=== PATIENT | male | born 1985 | race Asian ===

== ENCOUNTER 2018-03-23 20:51 | Emergency (ER) | payer OTHER ==
[~2018-03-23] VITALS: Ht 175.3 cm; Wt 71.2 kg
[~2018-03-23 20:51] MED LIST: ALBUTEROL SULF8.5 GM INH; AMOXICILLIN500 MG ORAL; JANUVIA25 MG ORAL; LANTUS SOL100 UNIT/1 SUBQ; NKM; NORCO 5-325 TA1 EACH ORAL; NOVOLOG100 UNIT/3 SUBQ; OMEPRAZOLE10 M1 ORAL; PROMETHAZINE-C118 M1 ORAL; TRAMADOL HCL50 MG ORAL; VICODIN 5-5001 EACH ORAL; ZANTAC150 MG ORAL
[2018-03-23] MEDS ORDERED: HUMALOG100 UNIT/4 SUBQ (21:02)
[2018-03-23] MEDS ORDERED: BASAGLAR INSULIN (21:02)
[2018-03-23] MEDS ORDERED: HUMULIN N100 UNIT/1 SUBQ (21:02)
[2018-03-23] MEDS ORDERED: ATENOLOL25 MG ORAL (21:07)
--- NOTE | 2018-03-23 21:08 | Emergency Room Report ---
History of Present Illness General Chief Complaint: Palpitations Source: Patient Present Illness HPI Is a 32-year-old male with history of diabetes. He presents with palpitation and possible low blood sugar. He said after working out at the gym, he was sweaty and lightheaded. He said his heart rate was beating fast. He thought his blood sugar was low. He checked it. He ate and symptom continue. Sinus rate came in. He said his heart was beating fast. His been going on for one hour now. Not lightheaded. No nausea no vomiting but no fever chills. Never had this problem before. Allergies: Coded Allergies: No Known Allergies (Unverified , 07/01/12) Patient History Past Medical History: see triage record, old chart reviewed, DM Past Surgical History: none Pertinent Family History: none Social History: Denies: smoking Immunizations: other Reviewed Nursing Documentation: PMH: Agreed; PSxH: Agreed Nursing Documentation-PMH Past Medical History: No History, Except For Hx Diabetes: Yes - DM2 Review of Systems Eye: Denies: eye pain, blurred vision ENT: Denies: ear pain, nose congestion, throat swelling Respiratory: Denies: cough, shortness of breath Cardiovascular: Reports: palpitations; Denies: chest pain Gastrointestinal: Denies: abdominal pain, diarrhea, nausea, vomiting Musculoskeletal: Denies: back pain, joint pain Skin: Denies: rash Neurological: Denies: headache, numbness Endocrine: Denies: increased thirst, increased urine Hematologic/Lymphatic: Denies: easy bruising All Other Systems: negative except mentioned in HPI Physical Exam Vital Signs Date Time Temp Pulse Resp B/P (MAP) Pulse Ox O2 Delivery O2 Flow Rate FiO2 03/23/18 20:53 98.2 208 22 112/84 98 Room Air 98.2 heart rate tachycardic Sp02 EP Interpretation: reviewed, normal General Appearance: well appearing, no apparent distress, alert Head: normocephalic, atraumatic Eyes: bilateral eye PERRL, bilateral eye EOMI ENT: hearing grossly normal, normal pharynx Neck: full range of motion, supple, no meningismus Respiratory: chest non-tender, lungs clear, normal breath sounds Cardiovascular #1: regular rate, rhythm, no murmur, tachycardia Gastrointestinal: normal bowel sounds, non tender, no mass, no organomegaly, no bruit, non-distended Musculoskeletal: back normal, gait/station normal, normal range of motion Psychiatric: mood/affect normal Skin: warm/dry Medical Decision Making Diagnostic Impression: Primary Impression: SVT (supraventricular tachycardia) ER Course Patient with SVT on the monitor. It is now a sinus rhythm and normal rate after carotid massage. Unfortunately EKG only shows sinus tachycardia because his symptom resolved prior to EKG. No evidence of ACS, PE, dissection to name a few. We'll check labs if normal will discharge home with cardiology follow- up and prescription for atenolol. Lab Results Impression labs unremarkable EKG Diagnostic Results Rate: tachycardiac Rhythm: NSR ST Segments: no acute changes Rhythm Strip Diag. Results Rhythm Strip Time: 21:06 EP Interpretation: yes Rate: 97 Rhythm: NSR, no PVC's, no ectopy Chest X-Ray Diagnostic Results Chest X-Ray Diagnostic Results : Chest X-Ray Ordered: Yes # of Views/Limited/Complete: 1 View Indication: Chest Pain EP Interpretation: Yes Interpretation: no consolidation, no effusion, no pneumothorax, no acute cardiopulmonary disease Impression: No acute disease Electronically Signed by: Steve Shipley MD Last Vital Signs Date Time Temp Pulse Resp B/P (MAP) Pulse Ox O2 Delivery O2 Flow Rate FiO2 03/23/18 20:53 98.2 208 22 112/84 98 Room Air 98.2 Status: improved Disposition: HOME, SELF-CARE Condition: Stable Scripts Atenolol* (TENORMIN*) 25 Mg Tablet 25 MG ORAL DAILY, #30 TAB Prov: STEVE SHIPLEY M.D. 03/23/18 Additional Instructions: If you heart rate is beating fast, new carotid massage on one side only. If this does not resolve it, take one atenolol. Follow-up with your doctor within a week. He will need a referral to see a assistant sales center manager. No exercise or strenuous activity until seen by assistant sales center manager. Avoid [id number] decongestant or cough and cold medication. Avoid any stimulants like coffee or smoking. Return if symptom worsen. STEVE SHIPLEY M.D. Mar 23, 2018 21:08
[2018-03-23 21:19] LABS: BASOPHILS % (AUTO) 0.5 % (0.0-2.0); EOSINOPHILS % (AUTO) 0.6 % (0.0-3.0); HEMOGLOBIN 16.1 G/DL (14.2-18.0); LYMPHOCYTES % (AUTO) 21.9 % (20.0-45.0); MEAN CORPUSCULAR VOLUME 81 FL (80-99); MONOCYTES % (AUTO) 5.9 % (1.0-10.0); NEUTROPHILS % (AUTO) 71.1 % (45.0-75.0); PLATELET COUNT 202 K/UL (150-450); RED BLOOD COUNT 5.91 M/UL (4.70-6.10); RED CELL DISTRIBUTION WIDTH 11.6 % (11.6-14.8); WHITE BLOOD COUNT 10.7 K/UL (4.8-10.8)
[2018-03-23 21:29] VITALS: BP 118/84
[2018-03-23 21:34] LABS: ANION GAP 11 mmol/L (5-15); BLOOD UREA NITROGEN 19 mg/dL (7-18); CALCIUM 9.3 MG/DL (8.5-10.1); CARBON DIOXIDE 26 MMOL/L (21-32); CHLORIDE 102 MMOL/L (98-107); CREATININE 1.3 MG/DL (0.55-1.30); POTASSIUM 3.7 MMOL/L (3.5-5.1); SODIUM 139 MMOL/L (136-145)
[2018-03-23 22:24] VITALS: BP 109/69
--- NOTE | 2018-03-26 19:46 | Cardiology Report ---
APPROVED REPORT EKG Measurement Heart [id number] Sinus tachycardia Otherwise normal ECG
== END 2018-03-23 22:24 | disposition home or self-care (01) ==
LOC: EMR 21:48 → EDUNIT# 21:48 → EMR 22:24
DX: I47.1 Supraventricular tachycardia (principal); E11.9 Type 2 diabetes mellitus without complications
CPT/HCPCS: 36415; 71045; 80048; 84484; 85025; 93005; 96360; 96374; 99284